=== PATIENT | female | born 1995 | race Caucasian/White ===

== ENCOUNTER → 2017-03-06 | Outpatient (REF) | payer OTHER | LOC: M LAB REF 17:23 | PROVIDERS: ATTEND Obstetrics & Gynecology | DX: Z34.82 Encounter for supervision of other normal pregnancy, second trimester (principal); Z36 Encounter for antenatal screening of mother; Z3A.00 Weeks of gestation of pregnancy not specified ==

== ENCOUNTER → 2017-03-08 | Outpatient (CLI) | payer OTHER ==
[2017-03-08 17:49] LABS: MEAN CORPUSCULAR HEMOGLOBIN 32.5 pg (27.0-33.0); MEAN CORPUSCULAR HGB CONC 34.9 g/dl (32.0-36.5); MEAN CORPUSCULAR VOLUME 93.2 fl (80.0-96.0); RED CELL DISTRIBUTION WIDTH 12.7 % (11.5-14.5); WHITE BLOOD COUNT 9.7 K/mm3 (4.0-10.0)
== END ==
LOC: M LRY 14:27
PROVIDERS: ATTEND Obstetrics & Gynecology
DX: Z34.82 Encounter for supervision of other normal pregnancy, second trimester (principal); Z36 Encounter for antenatal screening of mother; Z3A.00 Weeks of gestation of pregnancy not specified

== ENCOUNTER → 2017-04-25 | Outpatient (REF) | payer OTHER ==
[~2017-04-25] MED LIST: IBUP1TAB7 PO; PERCOCET PO
== END ==
LOC: M LAB REF 12:52
PROVIDERS: ATTEND Obstetrics & Gynecology
DX: Z34.83 Encounter for supervision of other normal pregnancy, third trimester (principal); Z36 Encounter for antenatal screening of mother; Z3A.00 Weeks of gestation of pregnancy not specified

== ENCOUNTER 2017-05-29 07:55 | Inpatient (IN) | payer OTHER ==
[~2017-05-29] VITALS: Ht 172.7 cm; Wt 110.0 kg
[2017-05-29] VITALS (12 sets, daily range): BP systolic 105–122; BP diastolic 56–86
[2017-05-29] MEDS ORDERED: LACTATED RINGER'S 1000 ML IV STA (08:11)
[2017-05-29] MEDS ORDERED: PROMETHAZINE INJ 25 MG/ML VIAL (J2550) IV ONE (08:45)
[2017-05-29] MEDS ORDERED: BUTORPHANOL 2 MG/ML INJ (J0595) IV ONE (08:45)
--- NOTE | 2017-05-29 08:51 | HPE ---
DATE OF ADMISSION: 05/29/2017 22-year-old 1, estimated date of delivery 05/23/2017, presents for postdates induction of labor at 40 weeks 6 days. Denies regular contractions, loss of fluid or bleeding. Fetus is active. Last normal menstrual period was unknown. dated by sonogram at 23 weeks 5 days. [facility]red to [facility] at 28 weeks. Anatomy scan within normal limits. has been otherwise uncomplicated. ALLERGIES: No known drug allergies. MEDICAL/SURGICAL HISTORY: Noncontributory. FAMILY HISTORY: Cerebral palsy. SOCIAL HISTORY: Single. Family and father of the baby present and supportive. Denies tobacco, alcohol, drugs or abuse. OBJECTIVE: Prepregnancy weight 230, total weight gain 15 pounds. O+, antibody negative, rubella immune. Pap within normal limits 2016. VDRL, hep B, hep C, HIV, gonorrhea, Chlamydia all negative. UDS was negative. 1-hour glucose 112 and group B strep is negative. Vital signs are stable. No apparent distress. Heart rate is regular. Respirations are easy. Abdomen is soft, gravid, longitudinal lie. Contractions every 5 minutes times 45-60 seconds, not perceived by the patient. heart 130, moderate variability with accelerations. Sterile vaginal exam 1-2 cm, 80%, -2, cephalic, slightly posterior. ASSESSMENT: 1. Primipara at postdates for induction of labor, category one tracing. PLAN: Admit per consult Dr. Wagoner. Misoprostol cervical ripening. The patient plans to labor ad erma considering epidural. Anticipate normal spontaneous vaginal .
[2017-05-29 09:00] LABS: MEAN CORPUSCULAR HEMOGLOBIN 30.3 pg (27.0-33.0); MEAN CORPUSCULAR HGB CONC 34.9 g/dl (32.0-36.5); MEAN CORPUSCULAR VOLUME 86.8 fl (80.0-96.0); RED CELL DISTRIBUTION WIDTH 13.2 % (11.5-14.5); WHITE BLOOD COUNT 7.8 K/mm3 (4.0-10.0)
[2017-05-29] MEDS: miSOPROStol 50 MCG 1/2 TAB (S0191) PO SCH ×4 (09:05→23:25)
[2017-05-29] MEDS ORDERED: hydrOXYzine 50 MG TAB PO SCH (21:00)
[2017-05-30] VITALS (20 sets, daily range): BP systolic 99–135; BP diastolic 58–77
[2017-05-30] MEDS ORDERED: OXYTOCIN DRIP 30 UNITS in APPROPRIATE DILUENT 1 EA IV SCH ×2 (08:00→19:38)
[2017-05-30] MEDS ORDERED: OXYTOCIN 30 UNITS IN 0.9% NaCl 500ML IV BAG (J2590) As Ordered ONE (08:13)
[2017-05-30] MEDS: LR 1,000 ML IV SCH ×2 (08:34→12:29)
[2017-05-30] MEDS ORDERED: BICITRA 30ML SOLN UDC As Ordered ONE (08:58)
[2017-05-30] MEDS ORDERED: ceFAZolin 2 GM/D5W 50 ML IV BAG (J0690) As Ordered ONE (08:59)
[2017-05-30] MEDS ORDERED: MORPHINE PRES-FREE INJ 10 MG/10 ML VIAL (J2274) As Ordered ONE (17:56)
[2017-05-30] MEDS ORDERED: OXYTOCIN INJ 10 UNITS/ML VIAL (J2590) As Ordered ONE (17:57)
[2017-05-30] MEDS ORDERED: METOCLOPRAMIDE INJ 10MG/2ML VIAL (J2765) IV PRN ×2 (18:25→20:00)
[2017-05-30] MEDS ORDERED: NALOXONE INJ 0.4 MG/1 ML VIAL (J2310) IV PRN ×2 (18:25)
[2017-05-30] MEDS ORDERED: ONDANSETRON 4MG/2ML VIAL (J2405) IV PRN ×3 (18:25→20:00)
[2017-05-30] MEDS ORDERED: NALBUPHINE HCL 10 MG/ML AMP (J2300) IV PRN (18:25)
[2017-05-30] MEDS ORDERED: LR 1,000 ML IV SCH ×2 (18:35→20:00)
[2017-05-30] MEDS ORDERED: LACTATED RINGER'S 1000 ML IV STA (18:35)
[2017-05-30] MEDS ORDERED: ePHEDrine SULFATE 25 MG/5 ML(5MG/ML) SYRINGE As Ordered ONE (18:41)
[2017-05-30] MEDS ORDERED: BICITRA 30ML SOLN UDC PO ONE (18:45)
[2017-05-30] MEDS ORDERED: PHENYLephrine HCL 500 MCG/5 ML (100MCG/ML) SYRINGE (J2370) As Ordered ONE (18:49)
[2017-05-30] MEDS ORDERED: KETOROLAC 60 MG/2 ML VIAL (J1885) As Ordered ONE (18:56)
[2017-05-30] MEDS ORDERED: ONDANSETRON 4MG/2ML VIAL (J2405) As Ordered ONE (18:56)
[2017-05-30 19:38] LABS: CORD GAS ABE A -2.2; CORD GAS ABE V -1.9; CORD GAS HCO3 A 25.3 MEQ/L; CORD GAS HCO3 V 23.2 MEQ/L; CORD GAS O2 SAT V 55.2 %; CORD GAS PCO2 V 40.5 mmHg; CORD GAS PH A 7.297 UNITS; CORD GAS PH V 7.375 UNITS; CORD GAS PO2 A 14.1 mmHg; CORD GAS PO2 V 21.9 mmHg; CORD GAS SBC A 20.6 MEQ/L; CORD GAS SBC V 21.7 MEQ/L; CORD GAS TCO2 A 26.9 MEQ/L; CORD GAS TCO2 V 24.4 MEQ/L
[2017-05-30] MEDS ORDERED: PERCOCET 5MG/325MG TAB PO PRN ×3 (19:45→20:00)
[2017-05-30] MEDS ORDERED: DOCUSATE SODIUM 100 MG CAP PO PRN (19:45)
[2017-05-30] MEDS ORDERED: RHOGAM 300 MCG (1500 IU) INJ (J2790) IM SCH (19:45)
[2017-05-30] MEDS ORDERED: MEASLES,MUMPS,RUBELLA VACCINE INJ (MMR-II) (90707) SC SCH (19:45)
[2017-05-30] MEDS ORDERED: MOM 30ML SUSPENSION UDC PO PRN (19:45)
[2017-05-30] MEDS ORDERED: fentaNYL 100 MCG/2 ML INJECTION (J3010) IV PRN (20:00)
[2017-05-30] MEDS ORDERED: MEPERIDINE INJ 25 MG/ML VIAL (J2175) IV PRN (20:00)
[2017-05-31] MEDS ORDERED: IBUP1TAB7 PO (00:05)
[2017-05-31] MEDS ORDERED: PERCOCET PO (00:06)
[2017-05-31] MEDS: KETOROLAC 30 MG/ML VIAL (J1885) IV SCH ×4 (01:52→20:41)
[2017-05-31 03:45] VITALS: BP 106/72
[2017-05-31] MEDS: LR 1,000 ML IV SCH ×4 (03:48→19:38)
--- NOTE | 2017-05-31 05:21 | RO ---
DATE OF PROCEDURE: 05/30/2017 PREOPERATIVE DIAGNOSIS: Inability to augment labor. POSTOPERATIVE DIAGNOSIS: Inability to augment labor. PROCEDURE PERFORMED: Primary lower transverse section. SURGEON: Rebeca Rai MD MARINE GEAR KEEPER: Sanjuana Chavez CNM ANESTHESIA: Spinal. ESTIMATED BLOOD LOSS: 500 mL. URINE OUTPUT: 125 mL. INTRAVENOUS FLUIDS: 1300 mL of lactated Ringer solution. PREOPERATIVE ANTIBIOTICS: 2 grams of Ancef. OPERATIVE FINDINGS: Liveborn male , 7 and 9. Weight was 3908 grams or 8 pounds 10 ounces. INDICATION FOR OPERATION: Mrs. Evans is a 22-year-old, 1, who presented at 41 weeks for induction of labor. Her induction was started initially with misoprostol. She received four doses. Last dose, she had several late decelerations. The baby was allowed to recover for several hours. Pitocin was then initiated and was discontinued secondary to repetitive late decelerations. Second attempt was initiated with pitocin after allowing the baby to recover, which was followed by repetitive late decelerations. Pitocin was then stopped. Decision was then made to proceed with a primary lower transverse section secondary to inability to augment her labor. DESCRIPTION OF OPERATION: After informed consent was obtained and written consent was reviewed, the patient was brought to the operating room where spinal anesthesia was placed. She was then placed in lithotomy position with a left lateral tilt. A Rosas catheter was set and placed to gravity. The patient was then prepped and draped in a normal sterile fashion. A time-out in the operating room was then performed, identifying the patient, procedure to be performed, as well as drug allergies. Anesthesia was then tested, deemed to be adequate. A Pfannenstiel skin incision was then made and carried down to the underlying rectus fascia. The fascia was scored and this incision was extended bilaterally. The fascia was then dissected off the underlying rectus muscles both superiorly and inferiorly. The rectus muscles were then in the midline. The peritoneum was then entered. A bladder blade was then placed to retract back the bladder. The vesicouterine peritoneum was then tented and excised to create a bladder flap. The bladder blade was then reinserted to retract the bladder. A curvilinear incision was then made in the lower uterine segment. Amniotomy was then performed productive of clear fluid. The head was brought to the level of the incision atraumatically and was delivered, followed by delivery of shoulders and corpus. The cord was clamped times two. Infant was taken over to the warmer with a good cry. Cord blood and gases were obtained. Placenta was then drained and delivered grossly intact. The uterus was then exteriorized and cleared of all clots and debris. The uterine incision was then closed in two layers using #0 Vicryl, first layer in a running locking fashion, followed by a second layer for imbrication in a running nonlocking fashion. The abdomen was then suctioned. The uterus was returned to the patient's abdomen. It was re-inspected and noted to be hemostatic. The anterior peritoneum was then reapproximated with #3-0 Vicryl. The rectus muscles were reapproximated with #3-0 Vicryl. The fascia was then closed with #0 Vicryl in a running nonlocking fashion. The subcutaneous tissue was then irrigated and suctioned. Subcutaneous tissue was then reapproximated using #3-0 Vicryl. Several subdermal stitches were placed with #3-0 Vicryl and the skin was closed with #4-0 Monocryl in a subcuticular fashion. The incision was then cleaned and dry. Mastisol was applied above and below the incision. Steri-Strips were applied over the incision. The incision was then dressed. Patient was then taken to recovery in stable condition. Counts were correct.
[2017-05-31 06:10] VITALS: BP 114/64
[2017-05-31] MEDS ORDERED: LR 1,000 ML IV ONE (06:15)
[2017-05-31 07:00] LABS: MEAN CORPUSCULAR HEMOGLOBIN 31.7 pg (27.0-33.0); MEAN CORPUSCULAR HGB CONC 36.3 g/dl (32.0-36.5); MEAN CORPUSCULAR VOLUME 87.1 fl (80.0-96.0); RED CELL DISTRIBUTION WIDTH 13.3 % (11.5-14.5); WHITE BLOOD COUNT 7.7 K/mm3 (4.0-10.0)
[2017-05-31] MEDS ORDERED: LR 1,000 ML IV SCH (07:15)
[2017-05-31] MEDS: PRENATAL VITAMINS CHEWABLE TABLET PO SCH (09:02)
[2017-05-31 10:05] VITALS: BP 99/62
[2017-05-31] MEDS ORDERED: LACTATED RINGER'S 1000 ML IV STA (10:09)
[2017-05-31 14:37] VITALS: BP 116/56
[2017-05-31 18:00] VITALS: BP 106/62
[2017-06-01] MEDS: IBUPROFEN 800 MG TAB PO SCH ×2 (02:54→10:41)
[2017-06-01 05:42] VITALS: BP 121/76
[2017-06-01 07:30] VITALS: BP 121/76
[2017-06-01] MEDS: PRENATAL VITAMINS CHEWABLE TABLET PO SCH (08:26)
== END 2017-06-01 14:00 | disposition home or self-care (01) | DRG 766 ==
LOC: M LDI 07:55 → M OBS 05-31 00:22
PROVIDERS: ADMIT Advanced Practice Midwife; ATTEND Obstetrics & Gynecology
PROC: 3E0P7GC Introduction of Other Therapeutic Substance into Female Reproductive, Via Natural or Artificial Opening (ICD-10-PCS; 2017-05-29)
PROC: 10D00Z1 Extraction of Products of Conception, Low, Open Approach (ICD-10-PCS; principal; 2017-05-30)
DX: O48.0 Post-term pregnancy (principal); Z3A.40 40 weeks gestation of pregnancy; O76 Abnormality in fetal heart rate and rhythm complicating labor and delivery; Z37.0 Single live birth

== ENCOUNTER 2017-11-26 10:55 | Emergency (ER) | payer OTHER, MEDICAID | END 2017-11-26 11:38 | disposition home or self-care (01) | LOC: M ED 10:55 | DX: B02.9 Zoster without complications (principal); Z86.19 Personal history of other infectious and parasitic diseases; Z79.899 Other long term (current) drug therapy | CPT/HCPCS: 99282 ==

== ENCOUNTER → 2018-06-20 | Outpatient (REF) | payer OTHER ==
[2018-06-20 21:09] LABS: APPEARANCE, URINE HAZY (CLEAR); BACTERIA, URINE AUTO 1+ (NEGATIVE); BILIRUBIN, URINE AUTO NEGATIVE (NEGATIVE); BLOOD, URINE BLOOD 2+ (NEGATIVE); COLOR, URINE YELLOW (YELLOW); GLUCOSE, URINE (UA) AUTO NEGATIVE (NEGATIVE); KETONE, URINE AUTO NEGATIVE (NEGATIVE); LEUKOCYTE ESTERASE, URINE AUTO 2+ (NEGATIVE); MUCUS, URINE SMALL (NEGATIVE); NITRITE, URINE AUTO POSITIVE (NEGATIVE); PROTEIN, URINE AUTO 1+ mg/dL (NEGATIVE); RBC, URINE AUTO 175 /HPF (0-3); SPECIFIC GRAVITY URINE AUTO 1.019 (1.002-1.035); SQUAMOUS EPITHELIAL CELL UR AU 2 /HPF (0-6); UROBILINOGEN, URINE AUTO 0.2 mg/dL (0.0-2.0); WBC, URINE AUTO 168 /HPF (0-3)
== END ==
LOC: M SFHCLERA 18:03
DX: N39.0 Urinary tract infection, site not specified (principal)

== ENCOUNTER → 2018-10-29 | Outpatient (CLI) | payer MEDICAID ==
[~2018-10-29] MED LIST changes: +DOFE125C PO; +GABA-845 PO; +ZOVI800T PO
--- NOTE | 2018-10-29 18:47 | REP ---
First trimester obstetric ultrasound for viability and dating: There is a single intrauterine gestation. heart rate is 165 beats per minute. pole crown-rump length is 6.5 cm corresponding to 12 weeks 2 days gestational age. The KELVIN is 05/11/2019. Gestational age by LMP is 13 weeks 1 day with an KELVIN of 05/05/2019. There is no subchorionic hematoma. The placenta is anterior and fundal. Electronically Signed by Niels Haney MD 10/29/2018 06:39 P
== END ==
LOC: M RAD 17:28
PROVIDERS: ATTEND Nurse Practitioner Family
DX: Z36.89 Encounter for other specified antenatal screening (principal); Z3A.12 12 weeks gestation of pregnancy

== ENCOUNTER → 2023-01-16 | Outpatient (CLI) | payer BC ==
[~2023-01-16] MED LIST changes: +GABA-283 PO; -GABA-845 PO
== END ==
LOC: M WHC 14:34
PROVIDERS: ATTEND Obstetrics & Gynecology
DX: Z34.92 Encounter for supervision of normal pregnancy, unspecified, second trimester (principal)

== ENCOUNTER → 2023-03-12 | Outpatient (CLI) | payer BC | LOC: M WHC 06:35 | PROVIDERS: ATTEND Advanced Practice Midwife | DX: Z34.82 Encounter for supervision of other normal pregnancy, second trimester (principal) ==

== ENCOUNTER → 2023-04-26 | Outpatient (REF) | payer BC | LOC: M PLALAB 07:33 | PROVIDERS: ATTEND Advanced Practice Midwife | DX: Z34.80 Encounter for supervision of other normal pregnancy, unspecified trimester (principal) ==

== ENCOUNTER 2023-05-16 09:09 | Inpatient (IN) | payer BC ==
[2023-05-16] VITALS (9 sets, daily range): BP systolic 102–122; BP diastolic 56–73; TEMP 96.4; O2SAT 97–98
[~2023-05-16] VITALS: Ht 172.7 cm; Wt 119.3 kg
[~2023-05-16 09:09] MED LIST changes: -GABA-283 PO; +GABA-284 PO
[2023-05-16] MEDS ORDERED: LACTATED RINGER'S 1000 ML IV STA (10:26)
[2023-05-16] MEDS ORDERED: LR 1,000 ML IV SCH (10:30)
[2023-05-16] MEDS ORDERED: OXYTOCIN DRIP 30 UNITS in IV 1 EA IV PRN ×4 (10:30)
[2023-05-16] MEDS ORDERED: TRANEXAMIC ACID INJection 1,000 MG in NS 100 ML IV PRN (10:30)
[2023-05-16] MEDS ORDERED: CARBOPROST TROMETHAMINE 250 MCG/ML AMP IM PRN (10:30)
[2023-05-16] MEDS ORDERED: METHYLERGONOVINE MALEATE 0.2MG/ML 1ML VIAL IM PRN (10:30)
[2023-05-16] MEDS ORDERED: ceFAZolin SOD 3 GM IV Place Holder IV ONE (10:30)
[2023-05-16] MEDS ORDERED: BICITRA 30ML SOLN UDC PO ONE (10:30)
[2023-05-16] MEDS ORDERED: OXYTOCIN INJ 10UNITS/ML 1ML VIAL IM PRN (10:30)
[2023-05-16] MEDS ORDERED: PRENTAB9 PO (10:38)
[2023-05-16] MEDS ORDERED: HOME MED LIST COMPLETE! XX SCH (10:40)
[2023-05-16] MEDS ORDERED: ceFAZolin SOD 2 GM in IV 1 EA IV ONE (11:00)
[2023-05-16] MEDS ORDERED: ceFAZolin SOD 1 GM in D5W MINI-BAG PLUS 50 ML IV ONE (11:00)
[2023-05-16 11:04] LABS: HEMATOCRIT 37.2 % (36.0-47.0); HEMOGLOBIN 12.7 g/dl (12.0-15.5); MEAN CORPUSCULAR HEMOGLOBIN 30.2 pg (27.0-33.0); MEAN CORPUSCULAR HGB CONC 34.1 g/dl (32.0-36.5); MEAN CORPUSCULAR VOLUME 88.4 fl (80.0-96.0); PLATELET COUNT, AUTOMATED 150 10^3/uL (150-450); RED BLOOD COUNT 4.21 10^6/uL (4.00-5.40); WHITE BLOOD COUNT 7.9 10^3/uL (4.0-10.0)
[2023-05-16] MEDS ORDERED: MORPHINE PRES-FREE INJ 10 MG/10 ML VIAL As Ordered ONE (11:58)
[2023-05-16] MEDS ORDERED: AZITHROMYCIN INJ 500 MG, VIAL MATE ADAPTER 1 EACH in NS 250 ML IV ONE (12:00)
[2023-05-16] MEDS ORDERED: OXYTOCIN 30UNITS IN 0.9% NaCl 500ML IV BAG As Ordered ONE ×2 (12:02→14:21)
[2023-05-16] MEDS ORDERED: ONDANSETRON 4MG 2ML VIAL As Ordered ONE (12:07)
[2023-05-16] MEDS ORDERED: GLYCOPYRROLATE INJ 0.2 MG/ML 2 ML VIAL As Ordered ONE (12:35)
[2023-05-16] MEDS ORDERED: ACETAMINOPHEN 1000MG 100ML IV BAG As Ordered ONE (12:50)
[2023-05-16] MEDS ORDERED: ePHEDrine SULFATE 25 MG/5 ML(5MG/ML) SYRINGE As Ordered ONE (12:54)
[2023-05-16] MEDS ORDERED: KETOROLAC 60MG 2ML VIAL As Ordered ONE (13:01)
[2023-05-16] MEDS ORDERED: SIMETHICONE 80MG CHEW TAB PO PRN (13:40)
[2023-05-16] MEDS ORDERED: RHOGAM 300MCG (1500IU) INJ IM SCH (13:40)
[2023-05-16] MEDS ORDERED: OXYTOCIN DRIP 30 UNITS in IV 1 EA IV SCH (13:40)
[2023-05-16] MEDS ORDERED: MOM 30ML SUSPENSION UDC PO PRN (13:40)
[2023-05-16] MEDS ORDERED: ONDANSETRON 4MG 2ML VIAL IV PRN ×2 (13:40→14:00)
[2023-05-16] MEDS ORDERED: oxyCODONE 5MG TAB PO PRN ×3 (13:40→14:00)
[2023-05-16] MEDS ORDERED: NALOXONE INJ 0.4MG/1ML VIAL IV PRN ×2 (14:00)
[2023-05-16] MEDS: SLF 3 ML SYR IV SCH ×2 (14:00→22:00)
[2023-05-16] MEDS ORDERED: **NOTE PATIENT COMMENT** MISC XX SCH (14:00)
[2023-05-16] MEDS ORDERED: HYDROMORPHONE HCL 0.5 MG/ 0.5 ML SYRINGE IV PRN (14:00)
[2023-05-16] MEDS ORDERED: MEPERIDINE 25 MG/ML 1ML VIAL IV PRN (14:00)
[2023-05-16] MEDS ORDERED: fentaNYL 100 MCG/2 ML INJECTION IV PRN (14:00)
[2023-05-16] MEDS ORDERED: diphenhydrAMINE 50MG/ML VIAL IV PRN (14:00)
[2023-05-16] MEDS ORDERED: METOCLOPRAMIDE INJ 10MG/2ML VIAL IV PRN (14:00)
[2023-05-16] MEDS: ACETAMINOPHEN 500 MG TAB PO SCH (18:00)
[2023-05-16] MEDS ORDERED: LR 1,000 ML IV ONE (19:05)
[2023-05-16] MEDS: KETOROLAC 30 MG/ML 1ML VIAL IV SCH (19:24)
[2023-05-16] MEDS: LR 1,000 ML IV SCH (20:42)
[2023-05-16] MEDS: DOCUSATE SODIUM 100MG CAPSULE PO SCH (21:28)
[2023-05-16] MEDS: ENOXAPARIN 30MG/0.3ML SYRINGE (J1650 PER 10MG) SC SCH (21:44)
[2023-05-17] MEDS: ACETAMINOPHEN 500 MG TAB PO SCH ×4 (00:41→18:53)
[2023-05-17] MEDS: KETOROLAC 30 MG/ML 1ML VIAL IV SCH ×2 (01:21→08:06)
[2023-05-17 02:00] VITALS: BP 93/54; O2SAT 98
[2023-05-17] MEDS: LR 1,000 ML IV SCH ×3 (03:05→19:25)
[2023-05-17 06:00] VITALS: BP 103/58; O2SAT 96
[2023-05-17 06:06] LABS: HEMATOCRIT 28.4 % (36.0-47.0); MEAN CORPUSCULAR HEMOGLOBIN 30.2 pg (27.0-33.0); MEAN CORPUSCULAR HGB CONC 33.5 g/dl (32.0-36.5); MEAN CORPUSCULAR VOLUME 90.2 fl (80.0-96.0); PLATELET COUNT, AUTOMATED 128 10^3/uL (150-450); RED BLOOD COUNT 3.15 10^6/uL (4.00-5.40)
[2023-05-17 06:08] LABS: HEMOGLOBIN 9.5 g/dl (12.0-15.5)
[2023-05-17] MEDS: SLF 3 ML SYR IV SCH (08:06)
[2023-05-17] MEDS: DOCUSATE SODIUM 100MG CAPSULE PO SCH ×2 (08:06→20:08)
[2023-05-17] MEDS: PRENATAL VITAMINS CHEWABLE TABLET PO SCH (08:06)
[2023-05-17] MEDS: ENOXAPARIN 30MG/0.3ML SYRINGE (J1650 PER 10MG) SC SCH ×2 (09:28→20:09)
[2023-05-17 10:00] VITALS: BP 109/55; O2SAT 97
[2023-05-17 14:00] VITALS: BP 97/55; O2SAT 97
[2023-05-17] MEDS ORDERED: IBUPROFEN 800 MG TAB PO SCH (15:00)
[2023-05-17] MEDS: IBUPROFEN 600MG TAB PO SCH ×2 (16:05→20:09)
[2023-05-17 17:27] VITALS: BP 112/62; O2SAT 98
[2023-05-17 22:00] VITALS: BP 100/58; O2SAT 97
[2023-05-18] MEDS: ACETAMINOPHEN 500 MG TAB PO SCH ×3 (00:34→13:44)
[2023-05-18 02:00] VITALS: BP 113/67; O2SAT 98
[2023-05-18] MEDS: IBUPROFEN 600MG TAB PO SCH ×3 (02:59→15:04)
[2023-05-18] MEDS: LR 1,000 ML IV SCH ×2 (03:05→11:05)
[2023-05-18 06:00] VITALS: BP 107/59; O2SAT 98
[2023-05-18] MEDS: DOCUSATE SODIUM 100MG CAPSULE PO SCH (08:05)
[2023-05-18] MEDS: PRENATAL VITAMINS CHEWABLE TABLET PO SCH (08:05)
[2023-05-18] MEDS: ENOXAPARIN 30MG/0.3ML SYRINGE (J1650 PER 10MG) SC SCH (08:07)
[2023-05-18] MEDS ORDERED: MEASLES,MUMPS,RUBELLA VACCINE INJ (MMR-II) SC.IMMUN ONE (09:00)
[2023-05-18 10:00] VITALS: BP 112/59
[2023-05-18] MEDS ORDERED: IBUP80TA PO (10:05)
[2023-05-18] MEDS ORDERED: OXYC1TAB23 PO (10:05)
== END 2023-05-18 15:40 | disposition home or self-care (01) | DRG 540 ==
LOC: M LDO 09:09 → M LDI 10:25 → M OBS 15:31
PROVIDERS: ADMIT Advanced Practice Midwife; ATTEND Obstetrics & Gynecology
PROC: 10D00Z1 Extraction of Products of Conception, Low, Open Approach (ICD-10-PCS; principal; 2023-05-16 13:39)
DX: O34.211 Maternal care for low transverse scar from previous cesarean delivery (principal); O42.02 Full-term premature rupture of membranes, onset of labor within 24 hours of rupture; Z3A.38 38 weeks gestation of pregnancy; Z37.0 Single live birth

== ENCOUNTER 2025-06-14 19:21 | Inpatient (IN) | payer BC ==
[~2025-06-14] VITALS: Ht 172.7 cm; Wt 114.9 kg
[~2025-06-14 19:21] MED LIST changes: -DOFE125C PO; +DOFE125C17 PO; +IBUP80TA PO; +OXYC1TAB23 PO; +PRENTAB9 PO
[2025-06-14 20:10] LABS: BASO # 0.0 10^3/uL (0.0-0.2); BASO % 0.1 % (0.0-1.0); EOS # 0.0 10^3/uL (0.0-0.5); EOS % 0.0 % (0.0-3.0); LYMPH # 0.2 10^3/uL (1.5-5.0); LYMPH % 2.2 % (24.0-44.0); MONO # 0.2 10^3/uL (0.0-0.8); MONO % 1.5 % (2.0-8.0); NEUTROPHILS # 10.4 10^3/uL (1.5-8.5); NEUTROPHILS % 95.6 % (36.0-66.0); PLATELET COUNT, AUTOMATED 181 10^3/uL (150-450)
[2025-06-14 20:22] LABS: INR 1.11
[2025-06-14 20:32] LABS: ALT/SGPT 25 U/L (7.0-40); AST/SGOT 23 U/L (<34); C REACTIVE PROTEIN QUANTITATIV 2.74 MG/DL (<1.0); CALCIUM LEVEL 8.5 MG/DL (8.5-10.1); CARBON DIOXIDE LEVEL 21 MMOL/L (20-31); CHLORIDE LEVEL 103 MMOL/L (98-107); CREATININE FOR GFR 0.72 MG/DL (0.55-1.30); GLOMERULAR FILTRATION RATE > 90.0 (>60); POTASSIUM SERUM 3.1 MMOL/L (3.5-5.1); SODIUM LEVEL 133 MMOL/L (136-145)
[2025-06-14 20:46] LABS: HCG, SERUM QUANTITATIVE 11064.0 MIU/ML (<4.2)
[2025-06-14] MEDS ORDERED: ISOVUE-370 76% 100 ML VIAL As Ordered ONE (21:20)
[2025-06-14] MEDS: ACETAMINOPHEN *IV* 1,000 MG in IV 1 EA IV ONE (22:05)
[2025-06-14] MEDS: ONDANSETRON 4MG 2ML VIAL IV ONE (22:05)
[2025-06-14 22:24] LABS: APPEARANCE, URINE HAZY (CLEAR); BACTERIA, URINE AUTO NEGATIVE (NEGATIVE); BILIRUBIN, URINE AUTO NEGATIVE (NEGATIVE); BLOOD, URINE BLOOD 3+ (NEGATIVE); GLUCOSE, URINE (UA) AUTO NEGATIVE (NEGATIVE); KETONE, URINE AUTO 1+ mg/dL (NEGATIVE); LEUKOCYTE ESTERASE, URINE AUTO 1+ (NEGATIVE); MUCUS, URINE SMALL (NEGATIVE); NITRITE, URINE AUTO NEGATIVE (NEGATIVE); PROTEIN, URINE AUTO NEGATIVE (NEGATIVE); RBC, URINE AUTO 1 /HPF (0-3); SPECIFIC GRAVITY URINE AUTO 1.012 (1.002-1.035); SQUAMOUS EPITHELIAL CELL UR AU 1 /HPF (0-6); UROBILINOGEN, URINE AUTO 0.2 mg/dL (0.0-2.0); WBC, URINE AUTO 27 /HPF (0-3)
[2025-06-14] MEDS ORDERED: KETOROLAC 30 MG/ML 1 ML VIAL As Ordered ONE (23:42)
[2025-06-14] MEDS ORDERED: MIDAZOLAM INJ 2 MG/2 ML VIAL As Ordered ONE (23:42)
[2025-06-14] MEDS ORDERED: ONDANSETRON 4MG 2ML VIAL As Ordered ONE (23:42)
[2025-06-14] MEDS ORDERED: LIDOCAINE 2% 100 MG/5 ML SDV (FOR ANES.) As Ordered ONE (23:42)
[2025-06-14] MEDS ORDERED: dexAMETHasone 4 MG/ML 1 ML VIAL As Ordered ONE (23:42)
[2025-06-15] VITALS (13 sets, daily range): BP systolic 90–146; BP diastolic 55–70; TEMP 97.2–101.2; O2SAT 96–99
[2025-06-15] MEDS: DOXYCYCLINE HYCLATE 100 MG/10 ML VIAL As Ordered ONE (00:30)
[2025-06-15] MEDS ORDERED: CALCIUM CHLORIDE 10% 1 GM/10 ML SYR As Ordered ONE (00:33)
[2025-06-15] MEDS ORDERED: ONDANSETRON 4MG 2ML VIAL IV PRN ×2 (00:45→01:10)
[2025-06-15] MEDS ORDERED: HYDROMORPHONE HCL 0.5 MG/0.5 ML SYRINGE IV PRN (00:45)
[2025-06-15] MEDS: METHYLERGONOVINE MALEATE 0.2 MG/ML 1 ML VIAL As Ordered ONE (00:47)
[2025-06-15] MEDS: SILVER NITRATE APPLICATOR (1 = QTY 10) As Ordered ONE (00:53)
[2025-06-15] MEDS ORDERED: PERCOCET 5MG/325MG TAB PO PRN (01:10)
[2025-06-15] MEDS ORDERED: MORPHINE 4 MG/ML 1 ML VIAL IV PRN (01:10)
[2025-06-15] MEDS ORDERED: PERCOCET PO (01:11)
[2025-06-15] MEDS ORDERED: IBUP80TA PO (01:11)
[2025-06-15] MEDS ORDERED: COLA100C5 PO (01:11)
[2025-06-15] MEDS ORDERED: ONDA-282 PO (01:12)
[2025-06-15 02:12] LABS: INR 1.3
[2025-06-15] MEDS: LR 1,000 ML IV SCH (02:16)
[2025-06-15] MEDS: KETOROLAC 30 MG/ML 1 ML VIAL IV SCH (05:51)
[2025-06-15] MEDS: cefTRIAXone SOD 2 GM in DEXTROSE 5% (D5W) ADV/MINI-BAG 50 ML IV SCH (08:14)
[2025-06-15] MEDS: DOCUSATE SODIUM 100 MG CAPSULE PO SCH (08:35)
[2025-06-15] MEDS ORDERED: ACETAMINOPHEN 500 MG TAB As Ordered ONE (18:17)
[2025-06-15] MEDS: ACETAMINOPHEN 500 MG TAB PO PRN (18:20)
[2025-06-16 00:03] VITALS: BP 117/62; TEMP 98.9; O2SAT 100
[2025-06-16 00:13] VITALS: BP 100/56; TEMP 99; O2SAT 99
[2025-06-16] MEDS: IBUPROFEN 800 MG TAB PO PRN (00:13)
[2025-06-16 01:13] VITALS: BP 100/56; TEMP 99; O2SAT 99
[2025-06-16] MEDS ORDERED: IBUPROFEN 800 MG TAB PO SCH (02:00)
[2025-06-16 06:00] VITALS: BP 102/61; TEMP 97; O2SAT 98
[2025-06-16 10:00] VITALS: BP 115/70; TEMP 97.2; O2SAT 98
[2025-06-16 10:49] LABS: PLATELET COUNT, AUTOMATED 141 10^3/uL (150-450)
[2025-06-16 11:20] LABS: ALT/SGPT 24 U/L (7.0-40); AST/SGOT 25 U/L (<34); CALCIUM LEVEL 8.0 MG/DL (8.5-10.1); CARBON DIOXIDE LEVEL 22 MMOL/L (20-31); CHLORIDE LEVEL 107 MMOL/L (98-107); CREATININE FOR GFR 0.63 MG/DL (0.55-1.30); GLOMERULAR FILTRATION RATE > 90.0 (>60); POTASSIUM SERUM 3.5 MMOL/L (3.5-5.1); SODIUM LEVEL 139 MMOL/L (136-145)
[2025-06-16] MEDS ORDERED: METR-265 PO (12:51)
[2025-06-16] MEDS ORDERED: DOXY-440 PO (12:52)
[2025-06-17] MEDS ORDERED: AMOX500T2 PO (14:36)
== END 2025-06-16 13:55 | disposition home or self-care (01) | DRG 544 ==
LOC: M ED 19:21 → M SDC 19:22 → M OBS 06-15 01:45 → M SDC 06-15 19:22
PROVIDERS: ADMIT Advanced Practice Midwife; ATTEND Obstetrics & Gynecology
PROC: 10D17ZZ Extraction of Products of Conception, Retained, Via Natural or Artificial Opening (ICD-10-PCS; principal; 2025-06-15)
DX: O04.87 Sepsis following (induced) termination of pregnancy (principal); B96.20 Unspecified Escherichia coli [E. coli] as the cause of diseases classified elsewhere